=== PATIENT | female | born 1990 | race Caucasian/White ===

== ENCOUNTER 2018-05-27 13:47 | Inpatient (IN) | payer OTHER ==
[2018-05-27] MEDS: LACTATED RINGER'S 1,000 ML IV ×2 (18:09→21:09)
[2018-05-27] MEDS ORDERED: GLUCOSE GEL 15 GRAM TUBE PO ×2 (18:30)
[2018-05-27] MEDS ORDERED: GLUCOSE GEL 15 GRAM TUBE BUCCAL (18:30)
[2018-05-27] MEDS ORDERED: GLUCAGON 1 MG INJ IM (18:30)
[2018-05-27] MEDS ORDERED: DEXTROSE 50% 50 ML SYRINGE IV ×2 (18:30)
[2018-05-27] MEDS ORDERED: ACCU-CHEK XX (19:35)
[2018-05-27] MEDS: NPH, HUMAN INSULIN ISOPHANE 3ML VIAL SC (21:43)
== END 2018-05-28 18:00 | disposition home or self-care (01) | DRG 832 ==
LOC: OBT 13:47 → L-D 13:47 → OBT 17:20 → L-D 17:22
PROVIDERS: Specialist
DX: O24.414 Gestational diabetes mellitus in pregnancy, insulin controlled (principal); O41.03X0 Oligohydramnios, third trimester, not applicable or unspecified; Z68.43 Body mass index [BMI] 50.0-59.9, adult; O99.213 Obesity complicating pregnancy, third trimester; E66.01 Morbid (severe) obesity due to excess calories; Z3A.35 35 weeks gestation of pregnancy
CPT/HCPCS: 76815; 76818; 82962

== ENCOUNTER 2018-06-22 06:10 | Inpatient (IN) | payer OTHER ==
[2018-06-22] MEDS ORDERED: OXYTOCIN 30 UNITS/LR 500 ML IV ×2 (07:00→09:52)
[2018-06-22] MEDS ORDERED: METHYLERGONOVINE 0.2 MG INJ IM (07:00)
[2018-06-22] MEDS ORDERED: CEFAZOLIN 2 GM/50 ML (PMX) 50 ML IVPB (07:00)
[2018-06-22] MEDS ORDERED: CARBOPROST 250 MCG INJ IM (07:00)
[2018-06-22] MEDS ORDERED: EPHEDrine SULFATE 50 MG/5 ML SYG (07:00)
[2018-06-22] MEDS ORDERED: MISOPROSTOL 200 MCG TAB PR ×2 (07:00→09:00)
[2018-06-22 08:00] LABS: ADD MAN DIFF? NO
[2018-06-22 08:04] LABS: WHITE BLOOD COUNT 11.7 10^3/ul (4.8-10.8)
[2018-06-22 08:04] LABS: BASOPHILS % 0.3 % (0.0-2.0); EOSINOPHILS # 0.1 10^3/ul (0.0-0.5); EOSINOPHILS % 1.2 % (0.0-7.0); HEMATOCRIT 33.3 % (37.0-47.0); HEMOGLOBIN 10.8 g/dl (12.0-16.0); LYMPHOCYTES # 2.5 10^3/ul (0.8-2.9); LYMPHOCYTES % 21.3 % (15.0-51.0); MEAN CORPUSCULAR HEMOGLOBIN 25.6 pg (29.0-33.0); MEAN CORPUSCULAR HGB CONC 32.4 g/dl (32.0-37.0); MEAN CORPUSCULAR VOLUME 78.9 fl (82.0-101.0); MEAN PLATELET VOLUME 11.4 fl (7.4-10.4); MONOCYTE # 0.8 10^3/ul (0.3-0.9); MONOCYTES % 6.9 % (0.0-11.0); NEUTROPHIL # 8.2 10^3/ul (1.6-7.5); PLATELET COUNT 275 10^3/UL (140-415); RED BLOOD COUNT 4.22 10^6/ul (4.20-5.40); RED CELL DISTRIBUTION WIDTH 14.4 % (11.5-14.5)
[2018-06-22] MEDS ORDERED: ONDANSETRON 4 MG INJ (08:06)
[2018-06-22] MEDS ORDERED: METOCLOPRAMIDE 10 MG INJ (08:07)
[2018-06-22] MEDS ORDERED: morphine SULFATE/PF (10 MG/10 ML) INJ (08:07)
[2018-06-22] MEDS ORDERED: KETOROLAC 30 MG INJ (08:07)
[2018-06-22 08:22] LABS: GLUCOSE 106 mg/dl (70-220)
[2018-06-22 08:29] LABS: INR 0.92; PARTIAL THROMBOPLASTIN TIME 26.4 Sec (23.0-35.0); PROTIME 12.5 Sec (11.9-14.9)
[2018-06-22] MEDS: CITRIC ACID/NA CITRATE 30 ML CUP PO (08:30)
[2018-06-22 08:52] LABS: HEPATITIS B SURFACE ANTIGEN NEGATIVE (NEGATIVE)
[2018-06-22] MEDS ORDERED: OXYCODONE/ACETAMINOPHEN (5/325) TAB PO (09:00)
[2018-06-22] MEDS ORDERED: NA PHOSPHATE/BIPHOS 133 ML ENEMA PR (09:00)
[2018-06-22] MEDS ORDERED: LANOLIN HPA 1 PKT TOP (09:00)
[2018-06-22] MEDS: SENNA/DOCUSATE NA (8.6MG/50MG) TAB PO ×2 (09:00→20:39)
[2018-06-22] MEDS ORDERED: CEFAZOLIN 3 GM in DEXTROSE 5% 100 ML IV (09:30)
[2018-06-22] MEDS: OXYTOCIN 30 UNITS/LR 500 ML IV ×2 (10:18→12:21)
[2018-06-22] MEDS ORDERED: NALOXONE (0.4 MG/ML) INJ IV (11:00)
[2018-06-22] MEDS ORDERED: ONDANSETRON 4 MG INJ IV ×2 (11:00)
[2018-06-22] MEDS ORDERED: HYDROmorphONE 1 MG/5 ML IV SYRINGE IV ×3 (11:00)
[2018-06-22] MEDS ORDERED: morphine 2 MG INJ IV ×3 (11:00)
[2018-06-22] MEDS: IBUPROFEN 600 MG TAB PO ×2 (12:00→17:26)
[2018-06-22] MEDS: DIPHENHYDRAMINE 50 MG INJ IV ×2 (12:18→20:38)
[2018-06-22] MEDS: LACTATED RINGER'S 1,000 ML IV ×3 (16:49→22:50)
[2018-06-22 22:17] LABS: RAPID PLASMA REAGIN NONREACTIVE (NR)
[2018-06-23] MEDS: LACTATED RINGER'S 1,000 ML IV (00:59)
[2018-06-23] MEDS: IBUPROFEN 600 MG TAB PO ×4 (06:00→17:56)
[2018-06-23 08:15] LABS: ADD MAN DIFF? NO
[2018-06-23 08:21] LABS: BASOPHILS % 0.2 % (0.0-2.0); EOSINOPHILS # 0.1 10^3/ul (0.0-0.5); EOSINOPHILS % 1.1 % (0.0-7.0); HEMATOCRIT 28.9 % (37.0-47.0); HEMOGLOBIN 9.2 g/dl (12.0-16.0); LYMPHOCYTES % 19.9 % (15.0-51.0); MEAN CORPUSCULAR HEMOGLOBIN 25.6 pg (29.0-33.0); MEAN CORPUSCULAR HGB CONC 31.8 g/dl (32.0-37.0); MEAN CORPUSCULAR VOLUME 80.3 fl (82.0-101.0); MEAN PLATELET VOLUME 11.3 fl (7.4-10.4); MONOCYTE # 0.9 10^3/ul (0.3-0.9); MONOCYTES % 8.9 % (0.0-11.0); NEUTROPHIL # 6.9 10^3/ul (1.6-7.5); NEUTROPHILS % 69.6 % (39.0-77.0); PLATELET COUNT 253 10^3/UL (140-415); RED CELL DISTRIBUTION WIDTH 14.5 % (11.5-14.5)
[2018-06-23 08:21] LABS: WHITE BLOOD COUNT 9.9 10^3/ul (4.8-10.8)
[2018-06-23] MEDS: KETOROLAC 30 MG INJ IV (08:39)
[2018-06-23] MEDS: SENNA/DOCUSATE NA (8.6MG/50MG) TAB PO ×2 (08:39→21:02)
[2018-06-24] MEDS: IBUPROFEN 600 MG TAB PO ×5 (00:03→23:46)
[2018-06-24] MEDS: SENNA/DOCUSATE NA (8.6MG/50MG) TAB PO ×2 (11:26→20:28)
[2018-06-24] MEDS: OXYCODONE/ACETAMINOPHEN (5/325) TAB PO (13:53)
[2018-06-25] MEDS: IBUPROFEN 600 MG TAB PO ×2 (05:36→12:39)
[2018-06-25] MEDS: DIPHTH/TET/ACEL PERTUSS (ADULT) 0.5 ML VIAL IM* (07:52)
[2018-06-25] MEDS: MEASLES,MUMPS,RUBELLA VACCINE INJ SC* (07:52)
[2018-06-25] MEDS: SENNA/DOCUSATE NA (8.6MG/50MG) TAB PO (08:18)
== END 2018-06-25 15:01 | disposition home or self-care (01) | DRG 786 ==
LOC: L-D 06:10 → PP1 13:29
PROVIDERS: Specialist
PROC: 10D00Z1 Extraction of Products of Conception, Low, Open Approach (ICD-10-PCS; principal; 2018-06-22 09:00)
DX: O34.211 Maternal care for low transverse scar from previous cesarean delivery (principal); O24.12 Pre-existing type 2 diabetes mellitus, in childbirth; O99.214 Obesity complicating childbirth; E66.01 Morbid (severe) obesity due to excess calories; O77.0 Labor and delivery complicated by meconium in amniotic fluid; E11.9 Type 2 diabetes mellitus without complications; Z3A.39 39 weeks gestation of pregnancy; Z37.0 Single live birth
CPT/HCPCS: 82947; 82962; 85025; 85610; 85730; 86592; 86850; 86900; 86901; 87340; 99464